=== PATIENT | male | born 1995 | race Caucasian/White ===

== ENCOUNTER 2023-01-06 05:57 | Inpatient (IN) | payer SELFPAY ==
[2023-01-06] MEDS ORDERED: Ondansetron 4 MG/2 ML SDV IVPUSH ONE (06:00)
[2023-01-06] MEDS ORDERED: Morphine 4 MG/ML Syringe IVPUSH ONE ×2 (06:05→06:19)
[2023-01-06] MEDS ORDERED: Naloxone 0.4 MG/ML SDV IVPUSH PRN ×3 (06:05→18:33)
[2023-01-06] MEDS ORDERED: Lactated Ringers 1,000 ML IV ONE ×3 (06:06→09:44)
[2023-01-06 06:13] LABS: BASOPHILS ABSOLUTE AUTO 0.06 K/uL (0.00-0.20); BASOPHILS PERCENT AUTO 0.8 % (0.0-1.0); EOSINOPHILS ABSOLUTE AUTO 0.08 K/uL (0.00-0.45); HEMATOCRIT 46.3 % (42.0-52.0); HEMOGLOBIN 16.3 g/dL (14.0-18.0); IMMATURE GRAN ABSOLUTE AUTO 0.05 K/uL (0.00-0.05); IMMATURE GRAN PERCENT AUTO 0.6 % (0.0-0.4); LYMPHOCYTES ABSOLUTE AUTO 3.85 K/uL (1.00-4.80); LYMPHOCYTES PERCENT AUTO 48.8 % (24.0-44.0); MEAN CORPUSCULAR HEMOGLOBIN 28.7 pg (28.0-32.0); MEAN CORPUSCULAR HGB CONC 35.2 g/dL (32.0-36.0); MEAN CORPUSCULAR VOLUME 81.5 fL (83.0-99.0); MEAN PLATELET VOLUME 10.4 fL (9.4-12.4); MONOCYTES ABSOLUTE AUTO 0.32 K/uL (0.00-0.80); MONOCYTES PERCENT AUTO 4.1 % (0.0-8.0); NEUTROPHILS ABSOLUTE AUTO 3.53 K/uL (1.80-7.70); NEUTROPHILS PERCENT AUTO 44.7 % (41.0-71.0); PLATELET COUNT,PLT 281 K/uL (150-400); RED BLOOD CELL COUNT 5.68 M/uL (4.52-5.90); WHITE BLOOD CELL COUNT,WBC 7.89 K/uL (3.9-11.3)
[2023-01-06 06:37] LABS: A/G RATIO 1.1 (0.9-1.6); ALBUMIN 3.8 g/dL (3.4-5.0); BILIRUBIN TOTAL 0.4 mg/dL (0.2-1.0); CALCIUM 8.6 mg/dL (8.5-10.1); CARBON DIOXIDE,CO2 23.3 mmol/L (21.0-32.0); EST CRCL DRUG DOSING (CG) 115.58 mL/min; POTASSIUM,K 4.5 mmol/L (3.5-5.1); PROTEIN TOTAL,TP 7.3 g/dL (6.4-8.2)
[2023-01-06] MEDS ORDERED: droPERidol 0.625 MG in Sodium Chloride 0.9% 50 ML IV ONE (06:45)
[2023-01-06] MEDS ORDERED: Iopamidol 755 MG/ML 500 ML Multipack Bottle IVPUSH STA ×2 (06:47→08:50)
[2023-01-06] MEDS ORDERED: droPERidol 5 MG/2 ML SDV IVPUSH ONE (06:52)
[2023-01-06] MEDS ORDERED: Ketorolac 30 MG/ML SDV IVPUSH ONE (07:00)
[2023-01-06] MEDS ORDERED: LORazepam 2 MG/ML SDV IVPUSH ONE (08:04)
[2023-01-06] MEDS ORDERED: Ondansetron 4 MG/2 ML SDV IVPUSH PRN ×2 (09:45→18:33)
[2023-01-06] MEDS ORDERED: Morphine 2 MG/ML SYRINGE IVPUSH PRN (09:45)
[2023-01-06] MEDS ORDERED: Promethazine 25 MG/ML SDV IM PRN (09:45)
[2023-01-06] MEDS: Pantoprazole 40 MG in Sodium Chloride 0.9% 10 ML IVPUSH SCH (10:24)
[2023-01-06] MEDS: Folic Acid 1 MG/0.2 ML UD Syringe SUBCUT SCH (10:24)
[2023-01-06] MEDS: Thiamine 200 MG/2 ML MDV IVPUSH SCH (10:25)
[2023-01-06] MEDS: Nicotine 21 MG/24 Hr Patch TRDERM SCH (11:03)
[2023-01-06] MEDS: HYDROmorphone 1 MG/ML Syringe IVPUSH PRN ×4 (12:05→17:19)
[2023-01-06] MEDS: Lactated Ringers 1,000 ML IV SCH ×2 (12:05→19:22)
[2023-01-06] MEDS ORDERED: Lactated Ringers 1,000 ML IV SCH (12:15)
[2023-01-06] MEDS: Sodium Chloride 0.65% Nasal Spray 45 ML Bottle NAS PRN (13:25)
[2023-01-06] MEDS: Fluticasone NASAL Spray 16 GM Bottle NASBOTH SCH (13:25)
[2023-01-06] MEDS: Ketorolac 30 MG/ML SDV IVPUSH PRN ×2 (15:08→21:11)
[2023-01-06 16:52] LABS: LACTIC ACID 2.3 mmol/L (0.4-2.0)
[2023-01-06] MEDS ORDERED: HYDROmorphone/Normal Saline 10 MG/50 ML PCA IV PRN (18:33)
[2023-01-06] MEDS ORDERED: diphenhydrAMINE 25 MG Cap PO PRN (18:33)
[2023-01-06] MEDS ORDERED: diphenhydrAMINE 50 MG/ML SDV IVPUSH PRN (18:33)
[2023-01-06] MEDS: LORazepam 2 MG/ML SDV IVPUSH PRN (21:13)
[2023-01-07] MEDS: Lactated Ringers 1,000 ML IV SCH ×5 (00:32→23:40)
[2023-01-07] MEDS: HYDROmorphone/Normal Saline 10 MG/50 ML PCA IV PRN ×3 (05:07→21:36)
[2023-01-07 05:34] LABS: BASOPHILS ABSOLUTE AUTO 0.04 K/uL (0.00-0.20); BASOPHILS PERCENT AUTO 0.4 % (0.0-1.0); EOSINOPHILS ABSOLUTE AUTO 0.12 K/uL (0.00-0.45); EOSINOPHILS PERCENT AUTO 1.3 % (0.0-6.0); HEMATOCRIT 41.8 % (42.0-52.0); HEMOGLOBIN 14.2 g/dL (14.0-18.0); IMMATURE GRAN ABSOLUTE AUTO 0.05 K/uL (0.00-0.05); IMMATURE GRAN PERCENT AUTO 0.6 % (0.0-0.4); LYMPHOCYTES ABSOLUTE AUTO 1.85 K/uL (1.00-4.80); LYMPHOCYTES PERCENT AUTO 20.7 % (24.0-44.0); MEAN CORPUSCULAR HEMOGLOBIN 27.9 pg (28.0-32.0); MEAN CORPUSCULAR VOLUME 82.1 fL (83.0-99.0); MEAN PLATELET VOLUME 10.1 fL (9.4-12.4); MONOCYTES ABSOLUTE AUTO 0.59 K/uL (0.00-0.80); MONOCYTES PERCENT AUTO 6.6 % (0.0-8.0); NEUTROPHILS ABSOLUTE AUTO 6.28 K/uL (1.80-7.70); NEUTROPHILS PERCENT AUTO 70.4 % (41.0-71.0); PLATELET COUNT,PLT 216 K/uL (150-400); RED BLOOD CELL COUNT 5.09 M/uL (4.52-5.90); WHITE BLOOD CELL COUNT,WBC 8.93 K/uL (3.9-11.3)
[2023-01-07 06:00] LABS: A/G RATIO 1.2 (0.9-1.6); ALBUMIN 3.3 g/dL (3.4-5.0); BILIRUBIN TOTAL 0.6 mg/dL (0.2-1.0); CALCIUM 8.5 mg/dL (8.5-10.1); CARBON DIOXIDE,CO2 28.9 mmol/L (21.0-32.0); CREATININE 0.9 mg/dL (0.8-1.3); EST CRCL DRUG DOSING (CG) 128.43 mL/min; MAGNESIUM 1.4 mg/dL (1.8-2.4)
[2023-01-07] MEDS ORDERED: Magnesium Sulfate/Water 4 GM in Premix Bag 1 BAG IV ONE (07:48)
[2023-01-07] MEDS: Thiamine 200 MG/2 ML MDV IVPUSH SCH (08:45)
[2023-01-07] MEDS: Folic Acid 1 MG/0.2 ML UD Syringe SUBCUT SCH (08:47)
[2023-01-07] MEDS: Fluticasone NASAL Spray 16 GM Bottle NASBOTH SCH ×2 (08:54→19:52)
[2023-01-07] MEDS: Ketorolac 30 MG/ML SDV IVPUSH PRN ×2 (09:01→15:02)
[2023-01-07] MEDS: Pantoprazole 40 MG in Sodium Chloride 0.9% 10 ML IVPUSH SCH (09:30)
[2023-01-07] MEDS: LORazepam 2 MG/ML SDV IVPUSH PRN (09:34)
[2023-01-07] MEDS: Nicotine 21 MG/24 Hr Patch TRDERM SCH (11:34)
[2023-01-07] MEDS: Sodium Chloride 0.65% Nasal Spray 45 ML Bottle NAS PRN (20:37)
[2023-01-08] MEDS: Lactated Ringers 1,000 ML IV SCH ×2 (04:36→09:47)
[2023-01-08] MEDS: HYDROmorphone/Normal Saline 10 MG/50 ML PCA IV PRN (06:09)
[2023-01-08 06:26] LABS: BASOPHILS ABSOLUTE AUTO 0.03 K/uL (0.00-0.20); BASOPHILS PERCENT AUTO 0.5 % (0.0-1.0); EOSINOPHILS ABSOLUTE AUTO 0.26 K/uL (0.00-0.45); EOSINOPHILS PERCENT AUTO 4.6 % (0.0-6.0); HEMOGLOBIN 13.3 g/dL (14.0-18.0); IMMATURE GRAN ABSOLUTE AUTO 0.02 K/uL (0.00-0.05); IMMATURE GRAN PERCENT AUTO 0.4 % (0.0-0.4); LYMPHOCYTES ABSOLUTE AUTO 1.49 K/uL (1.00-4.80); LYMPHOCYTES PERCENT AUTO 26.6 % (24.0-44.0); MEAN CORPUSCULAR HEMOGLOBIN 28.7 pg (28.0-32.0); MEAN CORPUSCULAR HGB CONC 34.1 g/dL (32.0-36.0); MEAN CORPUSCULAR VOLUME 84.1 fL (83.0-99.0); MEAN PLATELET VOLUME 10.6 fL (9.4-12.4); MONOCYTES ABSOLUTE AUTO 0.39 K/uL (0.00-0.80); NEUTROPHILS ABSOLUTE AUTO 3.41 K/uL (1.80-7.70); NEUTROPHILS PERCENT AUTO 60.9 % (41.0-71.0); PLATELET COUNT,PLT 173 K/uL (150-400); RED BLOOD CELL COUNT 4.64 M/uL (4.52-5.90)
[2023-01-08 06:47] LABS: BILIRUBIN TOTAL 0.7 mg/dL (0.2-1.0); CALCIUM 8.3 mg/dL (8.5-10.1); CARBON DIOXIDE,CO2 28.6 mmol/L (21.0-32.0); CREATININE 0.8 mg/dL (0.8-1.3); EST CRCL DRUG DOSING (CG) 144.48 mL/min; PHOSPHORUS 3.2 mg/dL (2.6-4.7); POTASSIUM,K 3.8 mmol/L (3.5-5.1); PROTEIN TOTAL,TP 5.9 g/dL (6.4-8.2)
[2023-01-08] MEDS: Pantoprazole 40 MG in Sodium Chloride 0.9% 10 ML IVPUSH SCH (09:45)
[2023-01-08] MEDS: Thiamine 200 MG/2 ML MDV IVPUSH SCH (09:46)
[2023-01-08] MEDS: Folic Acid 1 MG/0.2 ML UD Syringe SUBCUT SCH (09:49)
[2023-01-08] MEDS: Fluticasone NASAL Spray 16 GM Bottle NASBOTH SCH (10:15)
[2023-01-08] MEDS: Nicotine 21 MG/24 Hr Patch TRDERM SCH (10:16)
[2023-01-08] MEDS ORDERED: HYDROmorphone 1 MG/ML Syringe IVPUSH PRN ×2 (10:34→11:41)
[2023-01-08] MEDS: LORazepam 2 MG/ML SDV IVPUSH PRN (11:56)
[2023-01-08] MEDS ORDERED: Buprenorphine/Naloxone 8-2 MG Tab.SL SL SCH (12:00)
[2023-01-08 19:39] VITALS: BP 188/92; PULSE 92
== END 2023-01-08 17:30 | disposition home or self-care (01) | DRG 439 ==
LOC: MW.ED 05:57 → OBSVTOIN 08:55 → MW.MS 08:55
PROVIDERS: ADMIT Internal Medicine; ATTEND Internal Medicine
DX: K85.20 Alcohol induced acute pancreatitis without necrosis or infection (principal); F10.230 Alcohol dependence with withdrawal, uncomplicated; F11.20 Opioid dependence, uncomplicated; E86.0 Dehydration; Z79.899 Other long term (current) drug therapy
CPT/HCPCS: 36415; 74177; 74177-26; 80053; 82947; 83605; 83690; 83735; 84100; 84484; 85025; 93005; 93010; 96361; 96365; 96372; 96374; 96375; 96376; 99222; 99232; 99239; 99284; 99285-25; A9270-GY; C9113; G0378; J0574-GY; J1170; J1790; J1885; J2060; J2270; J2405; J3411; J3475; J3490; J7120; Q9967